=== PATIENT | female | born 1985 | race Caucasian/White ===

== ENCOUNTER 2021-11-22 19:09 | Emergency (ER) | payer OTHER, MEDICAID, SELFPAY ==
[2021-11-22 19:13] VITALS: BP 126/75; PULSE 102; RESP 14; TEMP 36.6; O2SAT 100; BMI 22.1
--- NOTE | 2021-11-22 19:39 | ED.WOUNDLAC ---
HPI - Wound/Laceration General Chief Complaint: Wound/Laceration Stated Complaint: cut left hand Time Seen by Provider: 11/22/21 19:25 Source: patient Mode of arrival: Ambulatory History of Present Illness HPI narrative: 36-year-old female who is here for evaluation of a cut to her left hand. She states that it occurred when she was trying to open a box that she thought was pain id shot. She does not know when her last tetanus shot was. Washed it out a small amount prior to arrival. No other injuries from the event. Related Data Allergies Allergy/AdvReac Type Severity Reaction Status Date / Time Sulfa (Sulfonamide Allergy Unknown Verified 11/22/21 19:15 Antibiotics) [SULFA (SULFONAMIDE ANTIBIOTICS)] Review of Systems Musculoskeletal Musculoskeletal: Reports system reviewed and no additional complaints, except as documented and Reports as per HPI Integumentary/Breasts Comments: Cut to left hand Hematologic/Lymphatic On Anticoagulants: No Patient History Social History Smoking Status: Current every day smoker Smoking Status: Current every day smoker alcohol intake frequency: a few times a week Substance Use Type: does not use Exam Initial Vital Signs Initial Vital Signs: Vital Signs Temperature 97.9 F 11/22/21 19:13 Pulse Rate 102 H 11/22/21 19:13 Respiratory Rate 14 11/22/21 19:13 Blood Pressure 126/75 11/22/21 19:13 Pulse Oximetry 100 11/22/21 19:13 HENMT Head: normal to inspection and normocephalic Skin Other: 1 cm laceration on the thenar eminence of the left hand. Neuro Sensory Exam: no sensory deficits noted Extrem Other: Full range of motion of the index finger and thumb of left hand. Procedures Laceration Repair Laceration 1: Site: hand Side (If applicable): left Size (cm): 1 Description: linear Depth: simple, single layer Local Anesthetic: lidocaine 1% and with bicarb Amount of anesthesia used (mL): 3 Pre-repair: wound explored and deep structures intact Skin layer closed with: nylon Size (cm): 5-0 Number of sutures: 2 Technique: simple, interrupted Course Orders Ordered: Discontinued Medications Bacitracin (Bacitracin Oint 0.9 Gm Pckt) 1 applic TOP NOW ONE Stop: 11/22/21 20:00 Last Admin: 11/22/21 20:07 Dose: 1 applic Documented by: BEATRICE Diphtheria/Tetanus/Acell Pertussis (Tet,Diph,Pertuss(Acell),Vac/Pf 0.5 Ml Syringe) 0.5 ml IM .ONCE ONE Stop: 11/22/21 19:40 Last Admin: 11/22/21 19:47 Dose: 0.5 ml Documented by: BEATRICE Lidocaine/Sodium Bicarbonate (Lido 1%/Sod Bicarb 8.4% (10ml) 10 Ml Syringe) 10 ml INJ NOW ONE Stop: 11/22/21 19:26 Last Admin: 11/22/21 19:49 Dose: 10 ml Documented by: BEATRICE Vital Signs Vital signs: Vital Signs - 8 hr 11/22/21 19:13 Temperature 97.9 F Pulse Rate 102 H Respiratory Rate 14 Blood Pressure 126/75 Pulse Oximetry 100 MDM - Wound/Laceration MDM Narrative Medical decision making narrative: Patient has an isolated cut to the palm of the left hand. No other injuries from the event. Her tetanus was updated. Was closed with 2 stitches as described above she was given care instructions and return precautions. No indication for radiologic studies. Patient expressed understanding and agreement. Discharge Plan Departure Patient Disposition: Home Clinical Impression: Laceration Instructions: DI for Laceration Repair Activity Restrictions/Additional Instructions: Leave the bandage that was placed today on for 24 hours. After that you can take it off. You can then wash your hands like normal. You can shower like normal. You can continue to use topical antibiotic ointment. The stitches do need to be removed in 7-10 days. You can contact your primary doctor or the walk-in clinic for this. Return to the emergency department for any new or worsening symptoms.
--- NOTE | 2021-11-22 19:43 | PC.NURSE ---
accidentally cut palm with a knife on th left hand
[2021-11-22] MEDS: TET,DIPH,PERTUSS(ACELL),VAC/PF 0.5 ML SYRINGE IM (19:47)
[2021-11-22] MEDS: LIDO 1%/SOD BICARB 8.4% (10ML) 10 ML SYRINGE INJ (19:49)
[2021-11-22] MEDS: BACITRACIN OINT 0.9 GM PCKT 1 APPLIC TOP (20:07)
== END 2021-11-22 20:09 | disposition home or self-care (01) ==
PROVIDERS: Emergency Provider Emergency Medicine
DX: S61.412A Laceration without foreign body of left hand, initial encounter (principal); W26.9XXA Contact with unspecified sharp object(s), initial encounter; Z23 Encounter for immunization
CPT/HCPCS: 12001; 90471; 99283; 90715

== ENCOUNTER 2022-05-20 19:21 | Emergency (ER) | payer OTHER, MEDICAID, SELFPAY | END 2022-05-20 19:53 | disposition left against medical advice (07) | PROVIDERS: Emergency Provider Family Medicine Addiction Medicine ==

== ENCOUNTER 2022-06-30 08:21 | Emergency (ER) | payer OTHER, MEDICAID, SELFPAY ==
[2022-06-30 08:30] VITALS: BP 160/103; PULSE 97; RESP 18; TEMP 36.2; O2SAT 97; BMI 25.1
--- NOTE | 2022-06-30 08:40 | ED_ITS ---
HPI - General Adult General Chief complaint: Dental/Oral Stated complaint: dental pain/swelling Time Seen by Provider: 06/30/22 08:27 Source: patient Mode of arrival: Ambulatory History of Present Illness HPI narrative: 37-year-old female who is here for evaluation dental pain/abscess. She has had dental work done on her bottom left back tooth in the past. She thinks maybe a filling came out. This happened on Friday. He tried to contact her dentist however it was the weekend and they were not open. She got a recording that says to call this week. She now has some swelling in her right lower jaw in the right side of her neck and is having right ear pain. No problems breathing or swallowing. Related Data Previous Rx's Medication Instructions Recorded hydrocodone 5 mg-acetaminophen 325 1 tab PO Q6H PRN pain #10 tabs 06/30/22 mg tablet penicillin V potassium 500 mg 500 mg PO QID 7 days #28 tabs 06/30/22 tablet Allergies Allergy/AdvReac Type Severity Reaction Status Date / Time Sulfa (Sulfonamide Allergy Unknown Verified 06/30/22 08:36 Antibiotics) [SULFA (SULFONAMIDE ANTIBIOTICS)] Review of Systems Constitutional Constitutional: Reports system reviewed and no additional complaints, except as documented ENT Ears, Nose, Mouth, and Throat: Reports system reviewed and no additional complaints, except as documented and Reports as per HPI Respiratory Respiratory: Reports as per HPI and Reports system reviewed and no additional complaints, except as documented Integumentary/Breasts Skin/Breast: Reports system reviewed and no additional complaints, except as documented Patient History Social History Smoking Status: Current every day smoker Smoking Status: Current every day smoker alcohol intake frequency: a few times a week Substance Use Type: does not use Exam Initial Vital Signs Initial Vital Signs: Vital Signs Temperature 97.1 F L 06/30/22 08:30 Pulse Rate 97 H 06/30/22 08:30 Respiratory Rate 18 06/30/22 08:30 Blood Pressure 160/103 H 06/30/22 08:30 Pulse Oximetry 97 06/30/22 08:30 Oxygen Delivery Method 06/30/22 08:30 HENMT Head: normal to inspection, normocephalic and atraumatic Ears: TM's normal bilaterally Face and sinus: no erythema, no fluctuance and other (Fullness right sub mandibular region) Teeth and gingiva: multiple restorations and other (Appears to be missing filling on the bottom right 2nd molar) Throat: posterior oropharynx normal Neck Other: Fullness right submandibular and anterior cervical chain Resp Effort & Inspection: normal respiratory effort Skin General: no rashes or lesions noted Course Orders Ordered: Discontinued Medications Hydrocodone Bitart/Acetaminophen (Hydrocodone/Acet 5/325 Tablet) 1 tab PO NOW ONE Stop: 06/30/22 08:40 Vital Signs Vital signs: Vital Signs - 8 hr 06/30/22 08:30 Temperature 97.1 F L Pulse Rate 97 H Respiratory Rate 18 Blood Pressure 160/103 H Pulse Oximetry 97 Oxygen Delivery Method Room Air Medical Decision Making MDM Narrative Medical decision making narrative: History and physical exam is consistent with a dental infection most likely from the missing filling in the bottom right 2nd molar. Will start the patient on antibiotics. Will provide pain control. Will have her contact her dentist earlier this week for follow-up. She was given return precautions. She expressed understanding and agreement. Discharge Plan Departure Patient Disposition: Home Clinical Impression: Dental abscess Activity Restrictions/Additional Instructions: Please take the medications as directed and tomorrow when your dentist office opens contact them as you are going to need definitive treatment by a dentist. Return to the emergency department for any new symptoms. Prescriptions: New penicillin V potassium 500 mg tablet 500 mg PO QID 7 Days Qty: 28 0RF hydrocodone-acetaminophen 5-325 mg tablet 1 tab PO Q6H PRN (Reason: pain) Qty: 10 0RF
[2022-06-30] MEDS: HYDROCODONE/ACET 5/325 TABLET 1 TAB PO (09:28)
== END 2022-06-30 09:38 | disposition home or self-care (01) ==
PROVIDERS: Emergency Provider Emergency Medicine
DX: K04.7 Periapical abscess without sinus (principal)
CPT/HCPCS: 99283

== ENCOUNTER 2023-09-06 15:49 | Observation (INO) | payer SELFPAY ==
[2023-09-06] VITALS (17 sets, daily range): BP systolic 109–144; BP diastolic 56–97; PULSE 75–96; RESP 12–21; TEMP 36.1–37; O2SAT 97–100; BMI 22.1; BMI 23.0
--- NOTE | 2023-09-06 | PATH_ITS ---
[facility] Accession Number: [id number] No. of containers..01 Tissue . 01 Material submitted: . fallopian tube - RIGHT FALLOPIAN TUBE . 01 Diagnosis: Right Fallopian Tube, Salpingectomy: Fallopian tube with acute salpingitis and hematosalpinx (on financial representative sections). Remaining tissue will be submitted for histologic evaluation; results will be reported as an addendum. MRV 09/17/2023 1719 Local . 01 Comment: The remaining tissue will be submitted; results will be reported as an addendum. . 01 Electronically signed: . Susi Pineda MD, Pathologist NPI- [id number] . 01 Gross description: . The specimen is received in formalin, labeled with the patient's name, , and right fallopian tube right, and consists of an intact, fimbriated fallopian tube measuring 8.2 cm in length and ranging from 0.7 cm to 2.2 cm in diameter. A large amount of hemorrhagic material is attached to the fimbriated end. The serosa is violaceous and smooth with no full-thickness defects grossly identified. A cystic structure is noted measuring 0.5 cm in greatest dimension. Sectioning reveals the lumen to be dilated with hemorrhagic material with no tissue grossly identified. Linoleum Tile Layer sections are submitted as follows: A1: Dilated hemorrhagic cross section. A2: One-half of bisected fimbriae and non-dilated unremarkable cross sections. A3: Linoleum Tile Layer attached hemorrhagic material. ([id number]) /FRR 09/10/2023 0418 Local . 01 Pathologist provided ICD-10: N70.01 . 01 CPT . 849186 Specimen Comment: A courtesy copy of this report has been sent to [facility] Pathology Performed at: [facility] [place] [facility] [address], [place], [place] [id number] MD Benson Wise MD Phone: [phone]
--- NOTE | 2023-09-06 16:04 | DI.US.S_ITS ---
PROCEDURE: US OB <= 14 WEEKS FETUS INDICATIONS: pelvic pain, + OUTSIDE/PRIOR DATING DATA: Last menstrual period (LMP): Unknown. LMP-based estimated date of delivery (EMILY): Unknown. TECHNIQUE: Real-time scanning was performed of the fetus and maternal pelvic organs, with image documentation. Endovaginal scanning was also performed to better visualize the fetus and maternal ovaries. COMPARISON: None. FINDINGS: No intrauterine gestational sac. Endometrium measures 0.5 cm. Right paraovarian heterogeneous mass measuring 4.9 x 3.2 x 2.7 cm. No significant internal vascularity. Right ovarian motors 3.4 x 2.3 x 2.1 cm, volume of 9 cc. Small ovarian follicles. Blood flow seen in the right ovary. Left ovary measures 2.8 x 2 x 1.7 cm, volume of 5 cc. Small ovarian follicles. Blood flow seen in the left ovary. There is a moderate amount free fluid in the pelvis. IMPRESSION: 1. of uncertain location. No intrauterine gestational sac. 2. Right paraovarian heterogeneous mass measuring 4.9 cm. This is concerning for an ectopic . Differential diagnosis includes a collapsed corpus luteum. Recommend gynecological consultation. 3. Moderate amount of free fluid in the pelvis. Comment: Findings were discussed with Harriet Gonzales at time of dictation. Reports patient has a history of ectopic pregnancies. We strive to produce accurate, complete, and clear reports of imaging services. To assist us in improving patient care, this report was composed using standard report templates and voice recognition software. Therefore, it may contain abnormal punctuation, insertions and/or omissions. Occasional wrong-word or sound-alike substitutions may occur. Though we review the report and make efforts to correct it, we do recommend that the report be read carefully in proper context to recognize any text inaccuracies. Dictated by: Maurice Emerson M.D. on 09/06/2023 at 18:00 Approved by: Maurice Emerson M.D. on 09/06/2023 at 18:06
[2023-09-06 16:19] LABS: Ur Creatinine Normal (Normal); Ur Specific Gravity Normal (Normal); Urine pH Normal (Normal)
[2023-09-06 16:20] LABS: UR Morphine/Opiate cutoff 300 Negative (Negative); Urine Amphetamines Positive (Negative); Urine Barbiturates Negative (Negative); Urine Benzodiazepines Negative (Negative); Urine Cocaine Negative (Negative); Urine MDMA Positive (Negative); Urine Methadone Negative (Negative); Urine Methamphetamines Positive (Negative); Urine Oxycodone Negative (Negative); Urine Phencyclidine Negative (Negative); Urine Tetrahydrocannabinol Negative (Negative); Urine Tricyclic Antidepressant Negative (Negative)
[2023-09-06 16:24] LABS: Add Manual Diff / Slide Review NO; Basophils Absolute Auto 100 /uL (0-100); Basophils Percent Auto 0.6 % (0-2); Eosinophils Absolute Auto 100 /uL (0-450); Eosinophils Percent Auto 0.7 % (2-4); Hematocrit 43.3 % (36-46); Hemoglobin 14.5 g/dL (12.0-16.0); Lymphocytes Absolute Auto 2800 /uL (1100-4500); Lymphocytes Percent Auto 15.4 % (25-40); Mean Corpuscular HGB Conc 33.5 % (30-36); Mean Corpuscular Hemoglobin 30.3 PG (26-34); Mean Corpuscular Volume 90.5 fL (80-100); Monocytes Absolute Auto 800 /uL (0-900); Monocytes Percent Auto 4.4 % (3-14); Neutrophils Absolute Auto 14200 /uL (1500-7000); Neutrophils Percent Auto 78.9 % (50-75); Platelet Count 269 X10^3/uL (150-400); Red Blood Cell Count 4.78 X10^6/uL (4.0-5.2); Red Cell Distribution Width 13.1 % (11.6-14.8)
[2023-09-06 16:31] LABS: Alanine Aminotransferase 13 IU/L (<35); Albumin 4.8 g/dL (3.5-5.0); Albumin Globulin Ratio 1.5 (1.0-2.8); Alkaline Phosphatase 57 U/L (38-126); Aspartate Aminotransferase 22 IU/L (14-36); BUN Creatinine Ratio 15.3 (6-22); Bilirubin Total 0.6 mg/dL (0.2-1.3); Blood Urea Nitrogen 9 mg/dL (7-17); Calcium 9.4 mg/dL (8.4-10.2); Carbon Dioxide 26 mmol/L (22-32); Chloride 102 mmol/L (98-107); Estimated Glomerular Filt Rate > 60 mL/min (>60); Globulin 3.2 g/dL (1.7-4.1); Glucose 110 mg/dL (70-100); HEMOLYSIS 25 (0-50); Potassium 3.9 mmol/L (3.4-5.1); Sodium 138 mmol/L (137-145)
--- NOTE | 2023-09-06 17:03 | ED.PREGNANCY ---
HPI - General Chief complaint: Abdominal Pain Stated complaint: ectopic t-0 Time Seen by Provider: 09/06/23 16:29 Source: patient Mode of arrival: Family Vehicle Limitations: no limitations History of Present Illness HPI Narrative: Patient 38-year-old female presenting today with right lower quadrant pain. She is previously had 2 ectopic she took a test today and it was positive. She reports that she would pain a couple hours ago. She would spotting last week but no bleeding today. Concern for substance abuse at triage Related Data Previous Rx's Medication Instructions Recorded hydrocodone 5 mg-acetaminophen 325 1 tab PO Q6H PRN pain #10 tabs 06/30/ mg tablet Allergies Allergy/AdvReac Type Severity Reaction Status Date / Time Sulfa (Sulfonamide Allergy Unknown Verified 09/06/23 16:05 Antibiotics) [SULFA (SULFONAMIDE ANTIBIOTICS)] Exam Initial Vital Signs Initial Vital Signs: Vital Signs Temperature 97.6 F 09/06/23 16:05 Pulse Rate 96 H 09/06/23 16:05 Respiratory Rate 18 09/06/23 16:05 Blood Pressure 144/97 H 09/06/23 16:05 Pulse Oximetry 100 09/06/23 16:05 Oxygen Delivery Method Room Air 09/06/23 16:05 GENERAL: Sleepy arousable 38-year-old female HEENT: Head atraumatic,EOMI, pupils reactive, face symmetric, [moist] mucous membranes CARDIOVASCULAR: Regular rate and rhythm without murmurs, rubs or gallops. RESPIRATORY: Breath sounds equal bilaterally, no wheezes rales or rhonchi. ABDOMEN: Soft, tender right lower quadrant pain minimal guarding no rebound EXTREMITIES: Normal range of motion, no clubbing or edema. Neurovascularly intact NEUROLOGICAL: Alert and oriented x4. SKIN: Warm, dry, no laceration, no petechiae, no rashes or lesions. Course Orders Ordered: ED Orders 09/06/23 16:00 Urine Drug Screen, Rapid Stat 09/06/23 16:04 US OB <= 14 weeks fetus Stat 09/06/23 16:08 Complete Blood Count AUTO DIFF Stat Comprehensive Metabolic Panel Stat HCG Quantitative /Beta subunit Stat 09/06/23 16:25 Type and Screen Stat Discontinued Medications Morphine Sulfate (Morphine 4 Mg/Ml Inj) 4 mg IV NOW ONE Stop: 09/06/23 17:37 Last Admin: 09/06/23 17:39 Dose: 4 mg Documented By: SHANTA Vital Signs Vital signs: Vital Signs - 8 hr 09/06/23 16:05 09/06/23 17:10 09/06/23 17:10 Temperature 97.6 F Pulse Rate 96 H 88 78 Respiratory Rate 18 16 Blood Pressure 144/97 H 121/80 Pulse Oximetry 100 100 Oxygen Delivery Method Room Air 09/06/23 17:30 09/06/23 17:30 Temperature Pulse Rate 78 Respiratory Rate 13 Blood Pressure 117/78 Pulse Oximetry 100 Oxygen Delivery Method Room Air MDM - OB/Uterine Contractions Lab Data 09/06/23 16:08 09/06/23 16:08 Labs: Lab Results 09/06/23 09/06/23 09/06/23 Range/Units 16:00 16:08 16:25 WBC 18.0 H (4.5-11.0) X10^3/uL RBC 4.78 (4.0-5.2) X10^6/uL Hgb 14.5 (12.0-16.0) g/dL Hct 43.3 (36-46) % MCV 90.5 (80-100) fL MCH 30.3 (26-34) PG MCHC 33.5 (30-36) % RDW 13.1 (11.6-14.8) % Plt Count 269 (150-400) X10^3/uL Neut % (Auto) 78.9 H (50-75) % Lymph % (Auto) 15.4 L (25-40) % [place] % (Auto) 4.4 (3-14) % Eos % (Auto) 0.7 L (2-4) % Baso % (Auto) 0.6 (0-2) % Neut # (Auto) 78292 H (2449-4167) /uL Lymph # (Auto) 2800 (7623-7469) /uL [place] # (Auto) 800 (0-900) /uL Eos # (Auto) 100 (0-450) /uL Baso # (Auto) 100 (0-100) /uL Sodium 138 (137-145) mmol/L Potassium 3.9 (3.4-5.1) mmol/L Chloride 102 (98-107) mmol/L Carbon Dioxide 26 (22-32) mmol/L BUN 9 (7-17) mg/dL Creatinine 0.59 (0.52-1.04) mg/dL Estimated GFR > 60 (>60) mL/min BUN/Creatinine Ratio 15.3 (6-22) Glucose 110 H (70-100) mg/dL Calcium 9.4 (8.4-10.2) mg/dL Total Bilirubin 0.6 (0.2-1.3) mg/dL AST 22 (14-36) IU/L ALT 13 (<35) IU/L Alkaline Phosphatase 57 (38-126) U/L Total Protein 8.0 (6.3-8.2) g/dL Albumin 4.8 (3.5-5.0) g/dL Globulin 3.2 (1.7-4.1) g/dL Albumin/Globulin Ratio 1.5 (1.0-2.8) HCG, Quant 2788.9 mIU/mL U Opiates 300ng/mL cut Negative (Negative) Ur Oxycodone Screen Negative (Negative) Urine Methadone Screen Negative (Negative) Ur Barbiturates Screen Negative (Negative) U Tricyclic Antidepress Negative (Negative) Ur Phencyclidine Scrn Negative (Negative) Ur Amphetamines Screen Positive H (Negative) U Methamphetamines Scrn Positive H (Negative) Ur MDMA Scrn (Ecstasy) Positive H (Negative) U Benzodiazepines Scrn Negative (Negative) Urine Cocaine Screen Negative (Negative) U Marijuana (THC) Screen Negative (Negative) Blood Type A Positive Antibody Screen Negative Point of Care Testing Test Results Positive Urine Dip Bedside Urine Glucose Negative Bedside Urine Bilirubin - Negative Bedside Urine Ketone - Negative Urine Specific [place] 1.020 Bedside Urine Occult Blood - Negative Bedside Urine pH 6.0 Bedside Urine Protein - Negative Bedside Urine Urobilinogen - Negative Bedside Urine Nitrite - Negative Bedside Urine Leukocytes - Negative Esterase Imaging Data US - OB: Radiologist's Impression: PROCEDURE: US OB <= 14 WEEKS FETUS INDICATIONS: pelvic pain, + OUTSIDE/PRIOR DATING DATA: Last menstrual period (LMP): Unknown. LMP-based estimated date of delivery (EMILY): Unknown. TECHNIQUE: Real-time scanning was performed of the fetus and maternal pelvic organs, with image documentation. Endovaginal scanning was also performed to better visualize the fetus and maternal ovaries. COMPARISON: None. FINDINGS: No intrauterine gestational sac. Endometrium measures 0.5 cm. Right paraovarian heterogeneous mass measuring 4.9 x 3.2 x 2.7 cm. No significant internal vascularity. Right ovarian motors 3.4 x 2.3 x 2.1 cm, volume of 9 cc. Small ovarian follicles. Blood flow seen in the right ovary. Left ovary measures 2.8 x 2 x 1.7 cm, volume of 5 cc. Small ovarian follicles. Blood flow seen in the left ovary. There is a moderate amount free fluid in the pelvis. IMPRESSION: 1. of uncertain location. No intrauterine gestational sac. 2. Right paraovarian heterogeneous mass measuring 4.9 cm. This is concerning for an ectopic . Differential diagnosis includes a collapsed corpus luteum. Recommend gynecological consultation. 3. Moderate amount of free fluid in the pelvis. Comment: Findings were discussed with Harriet Gonzales at time of dictation. Reports patient has a history of ectopic pregnancies. We strive to produce accurate, complete, and clear reports of imaging services. To assist us in improving patient care, this report was composed using standard report templates and voice recognition software. Therefore, it may contain abnormal punctuation, insertions and/or omissions. Occasional wrong-word or sound-alike substitutions may occur. Though we review the report and make efforts to correct it, we do recommend that the report be read carefully in proper context to recognize any text inaccuracies. Dictated by: Maurice Emerson M.D. on 09/06/2023 at 18:00 [facility] Narrative Medical decision making narrative: Patient 38-year-old female presenting today concern for pain with . She is had previous ectopic pregnancies. HCG today is, 2788 hemoglobin 14.5, hematocrit 43.3, WBC 18. UDS positive for methamphetamine amphetamine and MDMA Concern by c t tech for possible ruptured ectopic. I spoke directly with Dr. Emerson who was able to review the images and agreed that is no IUP mass in right ovary measuring 4.9 cm with moderate fluid collection in the cul-de-sac concern for ruptured ectopic Dr. Cabrera on-call for Ob updated on results concern for ruptured ectopic. Will be in a patient will be going OR, at bedside in ED Patient currently stable pressure 121/80 heart rate 88 Discharge Plan Departure Patient Disposition: Admitted as Observation Clinical Impression: Ruptured ectopic Admit Date/Time: 09/06/23 17:32 Admit Provider: Adele Hummel
[2023-09-06] MEDS: MORPHINE 4 MG/ML INJ IV (17:39)
--- NOTE | 2023-09-06 17:59 | PM.HP.1 ---
History of Present Illness History of Present Illness Date Patient Seen: 09/06/23 Time Patient Seen: 17:45 Date of Onset of Symptoms: 09/06/23 Chief complaint: ectopic t-0 Narrative: 38yo presented to the ER for abdominal pain that started today. She also found out she had a positive test today. She has a hx of 2 prior ectopic pregnancies, one treated with methotrexate and one laparoscopic salpingectomy. [facility] Social History Smoking Status: Current every day smoker Comment: PMH: hypothyroidism PSH: 1 prior laparoscopy for ectopic OB: 4 SVDs, 2 ectopic (1 MTX, 1 lap salpingectomy) Meds Home Medications and Allergies Home Medications Medication Instructions Recorded Confirmed Type hydrocodone 5 mg-acetaminophen 325 1 tab PO Q6H PRN pain #10 tabs 06/30/22 Rx mg tablet Allergies Allergy/AdvReac Type Severity Reaction Status Date / Time Sulfa (Sulfonamide Allergy Unknown Verified 09/06/23 16:05 Antibiotics) [SULFA (SULFONAMIDE ANTIBIOTICS)] Review of Systems Review of Systems ROS: Yes All systems reviewed with the patient and are negative except as otherwise documented Exam Vital Signs (past 8 hours): - 09/06/23 16:05 09/06/23 17:10 09/06/23 17:10 Temperature 97.6 F Pulse Rate 96 H 88 78 Respiratory Rate 18 16 Blood Pressure 144/97 H 121/80 Pulse Oximetry 100 100 Oxygen Delivery Method Room Air 09/06/23 17:30 09/06/23 17:30 09/06/23 17:40 Temperature Pulse Rate 78 Respiratory Rate 13 Blood Pressure 117/78 133/64 Pulse Oximetry 100 Oxygen Delivery Method Room Air 09/06/23 17:40 Temperature Pulse Rate 83 Respiratory Rate 17 Blood Pressure Pulse Oximetry 97 Oxygen Delivery Method Oxygen Delivery Method Room Air Const General: cooperative and No comfortable Resp Effort & Inspection: normal respiratory effort and able to speak in complete sentences GI Inspection: normal to inspection Palpation: soft, No guarding and tender Skin General: no rashes or lesions noted Psych Attitude: cooperative Thought Process: normal Objective Imaging US - abdomen: Radiologist's impression: Verbally reported to me as a mass in the adnexa with free fluid in the pelvis; no report available at time of my H&P Labs 09/06/23 16:08 12/16/23 16:08 Labs: Laboratory Results - last 24 hr 09/06/23 09/06/23 09/06/23 16:00 16:08 16:25 WBC 18.0 H RBC 4.78 Hgb 14.5 Hct 43.3 MCV 90.5 MCH 30.3 MCHC 33.5 RDW 13.1 Plt Count 269 Neut % (Auto) 78.9 H Lymph % (Auto) 15.4 L [place] % (Auto) 4.4 Eos % (Auto) 0.7 L Baso % (Auto) 0.6 Neut # (Auto) 35405 H Lymph # (Auto) 2800 [place] # (Auto) 800 Eos # (Auto) 100 Baso # (Auto) 100 Sodium 138 Potassium 3.9 Chloride 102 Carbon Dioxide 26 BUN 9 Creatinine 0.59 Estimated GFR > 60 BUN/Creatinine Ratio 15.3 Glucose 110 H Calcium 9.4 Total Bilirubin 0.6 AST 22 ALT 13 Alkaline Phosphatase 57 Total Protein 8.0 Albumin 4.8 Globulin 3.2 Albumin/Globulin Ratio 1.5 HCG, Quant 2788.9 U Opiates 300ng/mL cut Negative Ur Oxycodone Screen Negative Urine Methadone Screen Negative Ur Barbiturates Screen Negative U Tricyclic Antidepress Negative Ur Phencyclidine Scrn Negative Ur Amphetamines Screen Positive H U Methamphetamines Scrn Positive H Ur MDMA Scrn (Ecstasy) Positive H U Benzodiazepines Scrn Negative Urine Cocaine Screen Negative U Marijuana (THC) Screen Negative Blood Type A Positive Antibody Screen Negative Assessment & Plan Assessment and plan (1) Ruptured ectopic : Status: Acute Plan 38yo with ultrasound findings of ruptured ectopic . Pt was also noted to be positive for methamphetamines and ecstasy, however she demonstrated appropriate decision making with appropriate questions during my consent in the ER. She stated that she would potentially like to have other children, and I discussed that I will do my best to save her fallopian tube if possible, but that it is very likely she will lose her remaining fallopian tube. -plan for diagnostic laparoscopy with possible unilateral salpingectomy -plan for same day surgery with d/c home after recovery from anesthesia Surgery consent We discussed the risks/benefits/alternatives to the proposed procedure, to include: -risk of bleeding, requiring medications, blood products, or other procedures as indicated -risk of infection, requiring prolonged hospital stay or other procedures -risk of injury to other structures, including bowel, bladder, blood vessels, nerves, etc. which may also require additional procedures -risk of adverse reaction to anesthesia or medications -risk of venous thromboembolism and associated sequelae -risk of rare complications such as cardiac arrest, or extremely rarely, Patient is aware of the risks, and desires to proceed with planned surgical procedure. Time Spent With Patient Time with patient: less than 30 minutes
--- NOTE | 2023-09-06 18:32 | PC.NURSE ---
CUSTOMER TRAINER and patient's mother at bedside. Patient changed into hospital gown, belongings in bag with patient.
[2023-09-06] MEDS: LACTATED RINGERS 1,000 ML 42 ML IV ×2 (18:51→19:51)
--- NOTE | 2023-09-06 19:26 | SUR.OPER ---
Lithotomy on padded OR bed, head on pillow, right arm secured on padded arm board at <90 degrees abduction. left arm tucked with gel pad. Legs secured in padded yellow fins stirrups. safety strap across chest
[2023-09-06] MEDS: BUPIVACAINE 0.25% (PF) VIAL 30 ML INJ (19:49)
--- NOTE | 2023-09-06 20:07 | SUR.PHASEI ---
2001- Received to PACU after general anesthesia. Airway patent, self maintained. Report from Dr Rodriguez, and ALYSSA Amezcua.
[2023-09-06] MEDS: ONDANSETRON 4 MG/2 ML INJ IV (20:22)
[2023-09-06] MEDS: OXYCODONE/ACETAMINOPHEN 5/325 TABLET 1 TAB PO ×2 (20:23→20:49)
--- NOTE | 2023-09-06 20:29 | PC.NURSE ---
Percocet pre pack pulled for [facility], Surgical Services for patient currently in PACU.
[2023-09-06] MEDS: OXYCODONE/APAP 5/325 PREPACK 1 BOTTLE MISC (20:44)
--- NOTE | 2023-09-06 22:43 | PM.OP.1 ---
Operative Date/Time/Diagnoses Date of procedure: 09/06/23 Time of procedure: 19:00 Pre-op diagnosis: Suspected ruptured tubal ectopic Post-op diagnosis: same (Confirmed ruptured right tubal ectopic ) Procedure & Clinicians Procedure: Diagnostic laparoscopy Laparoscopic right salpingectomy Same procedure as scheduled: Yes Indications: 38yo presented to the ER for abdominal pain that started today. She also found out she had a positive test today. She has a hx of 2 prior ectopic pregnancies, one treated with methotrexate and one laparoscopic salpingectomy. Surgeon: Adele Hummel Click Yes if Unassisted: Yes Anesthesia Type: General Operative Notes Findings: Approximately 200cc of blood in the pelvis. Tubal noted in the right fallopian tube. Left fallopian tube surgically absent. Normal appearing uterus and bilateral ovaries. Normal appearing liver edge and gallbladder. Specimen(s): other (right fallopian tube) Estimated Blood Loss (mL): 200 Blood products transfused: none Procedure in detail: The risks, benefits, indications and alternatives of the procedure were reviewed with the patient and informed consent was obtained. The pt was taken to the operating room where general anesthesia was obtained without difficulty. The pt was then placed in the low lithotomy position using gel-padded El Stirrups. Sequential compression devices were placed bilaterally for VTE prophylaxis. Pt was then prepped and draped in the usual sterile fashion. A Vines catheter was placed without difficulty. A sponge stick was placed in the vagina as a means to manipulate the uterus. Attention was then turned to the patient?s abdomen where a 5mm skin incision was made in the inferior aspect of the umbilicus after injection of 0.25% marcaine. A 5mm trocar and sleeve were then carefully introduced into the peritoneal cavity under direct visualization at a 90-degree angle while tenting up the abdominal wall. Intra-peritoneal placement was confirmed under direct visualization with the laparoscope with entry pressure <5mmHg. A pneumoperitoneum was obtained with several liters of CO2 gas, maximum pressure of 15mmHg. Upon entry into the peritoneal cavity, structures immediately below the incision were inspected and found to be free of injury. Two additional 5mm trocars were placed in the left lateral aspect of the abdominal wall under direct laparoscopic visualization after injection of 0.25% marcaine at each site. A survey of the pt?s abdomen and pelvis was notable for the above findings. Visual examination of the right fallopian tube determined that the tube could not be salvaged. Using an atraumatic grasper, the right fallopian tube with the ectopic was tented up. In a stepwise fashion, the right fallopian tube was removed from the fimbriated end to the cornual end with ultimate excision of the fallopian tube using the Powerseal. One of the 5mm lateral ports was exchanged for a 11mm port in order to allow introduction of an endocatch bag into the abdomen. The right fallopian tube was then placed into the bag, and the bag was then removed from the abdomen. The tissue was sent to pathology for review. The pelvis was then irrigated and all remaining clots and blood were suctioned from the pelvis. All pedicles were re-examined and noted to be hemostatic. The gas was then turned off and all CO2 was removed from the pt?s abdomen. The trocars were removed. The fascia of the 11mm port was closed with an 0-vicryl suture. The skin incision sites were reapproximated using 4-0 monocryl and dermabond. The sponge stick was removed from the vagina, and the vines catheter was removed from the bladder. All instruments were confirmed to be removed from the vagina. At the completion of the case the sponge and needle counts were correct x 2. The patient tolerated the procedure well and was taken to the PACU in stable condition. Complications: none Post-operative Condition: stable Disposition: PACU Plan for aftercare: Discharge home once meeting PACU criteria.
== END 2023-09-06 20:52 | disposition home or self-care (01) ==
LOC: ED 16:29 → AC 17:33
PROVIDERS: Admitting Provider Student in an Organized Health Care Education/Training Program; Emergency Provider Emergency Medicine; Referring Provider Emergency Medicine; Visit Provider Student in an Organized Health Care Education/Training Program
PROC: (CPT 59151; principal; 2023-09-06 20:30)
DX: O00.101 Right tubal pregnancy without intrauterine pregnancy (principal)
CPT/HCPCS: 59151; 36415; 76801; 80053; 80305; 81003; 81025; 84702; 85025; 86850; 86900; 86901; 96374; 96375; 99221; 99284; G0378; J0330; J1100; J2250; J2270; J2405; J2704; J3010

== ENCOUNTER 2023-11-17 20:18 | Emergency (ER) | payer OTHER, MEDICAID, SELFPAY ==
[2023-11-17 20:21] VITALS: BP 136/81; PULSE 84; RESP 16; TEMP 36.3; O2SAT 100; BMI 254.3
[2023-11-17] MEDS: ONDANSETRON 4 MG/2 ML INJ IV (20:48)
[2023-11-17 20:59] LABS: Add Manual Diff / Slide Review NO; Basophils Absolute Auto 100 /uL (0-100); Basophils Percent Auto 0.6 % (0-2); Eosinophils Absolute Auto 200 /uL (0-450); Eosinophils Percent Auto 1.5 % (2-4); Hematocrit 44.5 % (36-46); Hemoglobin 14.9 g/dL (12.0-16.0); Lymphocytes Absolute Auto 2500 /uL (1100-4500); Lymphocytes Percent Auto 21.1 % (25-40); Mean Corpuscular HGB Conc 33.5 % (30-36); Mean Corpuscular Hemoglobin 29.8 PG (26-34); Mean Corpuscular Volume 88.9 fL (80-100); Monocytes Absolute Auto 900 /uL (0-900); Monocytes Percent Auto 7.2 % (3-14); Neutrophils Absolute Auto 8400 /uL (1500-7000); Neutrophils Percent Auto 69.6 % (50-75); Platelet Count 248 X10^3/uL (150-400); Red Blood Cell Count 5.01 X10^6/uL (4.0-5.2)
[2023-11-17 21:03] LABS: Alanine Aminotransferase 12 IU/L (<35); Albumin 4.2 g/dL (3.5-5.0); Albumin Globulin Ratio 1.4 (1.0-2.8); Alkaline Phosphatase 55 U/L (38-126); Aspartate Aminotransferase 21 IU/L (14-36); BUN Creatinine Ratio 14.8 (6-22); Bilirubin Total 0.4 mg/dL (0.2-1.3); Blood Urea Nitrogen 9 mg/dL (7-17); Calcium 9.1 mg/dL (8.4-10.2); Carbon Dioxide 25 mmol/L (22-32); Chloride 106 mmol/L (98-107); Estimated Glomerular Filt Rate > 60 mL/min (>60); Globulin 3.1 g/dL (1.7-4.1); Glucose 123 mg/dL (70-100); HEMOLYSIS 30 (0-50); Sodium 138 mmol/L (137-145); Total Protein 7.3 g/dL (6.3-8.2)
[2023-11-17 21:26] LABS: Influenza A - CEPHEID Flu A NEGATIVE (NEGATIVE); Influenza B - CEPHEID Flu B NEGATIVE (NEGATIVE); Respiratory Syncytial Virus Negative (Negative)
[2023-11-17 21:30] LABS: COVID-19 CEPHEID 4-PLEX PCR Negative (Negative)
--- NOTE | 2023-11-17 23:03 | ED.GENADULT ---
HPI - General Adult General Chief complaint: Dizziness Stated complaint: V/Dizzy/close to syncope Time Seen by Provider: 11/17/23 22:00 Source: patient Mode of arrival: Ambulatory History of Present Illness HPI narrative: Patient is a 38-year-old female who is here for evaluation of dizziness. She was also having some nausea. She felt like she was going to pass out. Symptoms started this morning when she woke up. Has been persistent throughout the day but does seem to be waxing and waning. She feels somewhat better when she is lying down but worse when she is sitting up or moving her head from [id number]. No sinus congestion. No ear pain. No sore throat. No chest pain, shortness of breath, palpitations. No headache. No extremity symptoms. Family at bedside states she has had a diagnosis of vertigo in the past. Patient was unaware of this. Related Data Home Medications Medication Instructions Recorded Confirmed levothyroxine 50 mcg tablet 50 mcg PO DAILY 09/06/23 09/06/23 Previous Rx's Medication Instructions Recorded meclizine 25 mg tablet 25 mg PO BID PRN dizziness #14 tabs 11/17/23 Allergies Allergy/AdvReac Type Severity Reaction Status Date / Time Sulfa (Sulfonamide Allergy Unknown childhood Verified 11/17/23 20:21 Antibiotics) reaction [SULFA (SULFONAMIDE ANTIBIOTICS)] sulfamethoxazole Allergy childhood Verified 11/17/23 20:21 [From Bactrim] reaction trimethoprim [From Bactrim] Allergy childhood Verified 11/17/23 20:21 reaction Review of Systems Review of Systems ROS Unobtainable: All systems reviewed & are unremarkable except as noted in HPI and below Constitutional Constitutional: Reports system reviewed and no additional complaints, except as documented Patient History Medical History Hepatitis C Hypothyroid Surgical History (Updated 09/06/23 @ 18:59 by Sharonda Alva RN) S/P breast augmentation Social History household members: family and children Smoking Status: Current every day smoker Smoking Status: Current every day smoker tobacco type: cigarettes alcohol intake frequency: a few times a week Substance Use Type: marijuana Exam Initial Vital Signs Initial Vital Signs: Vital Signs Temperature 97.4 F L 11/17/23 20:21 Pulse Rate 84 02/26/24 20:21 Respiratory Rate 16 11/17/23 20:21 Blood Pressure 136/81 11/17/23 20:21 Pulse Oximetry 100 11/17/23 20:21 Oxygen Delivery Method Room Air 11/17/23 20:21 Const General: cooperative, comfortable and No ill appearing HENMT Head: normal to inspection and normocephalic Ears: TM's normal bilaterally Face and sinus: normal facial exam Resp Effort & Inspection: normal respiratory effort Cardio Rate: regular rate Skin General: no rashes or lesions noted Neuro General: patient alert, patient awake, patient oriented x3 and moves all extremities Extrem General: normal to inspection and capillary refill normal Course Orders Ordered: ED Orders 11/17/23 20:41 Complete Blood Count AUTO DIFF Stat Comprehensive Metabolic Panel Stat Covid-19 + FLU A/B + RSV - PCR Stat 11/17/23 22:21 EKG-12 Lead Stat Discontinued Medications Meclizine HCl (Meclizine Hcl 12.5 Mg Tablet) 25 mg PO NOW ONE Stop: 11/17/23 23:04 Last Admin: 11/17/23 23:17 Dose: 25 mg Documented By: GC Ondansetron HCl (Ondansetron 4 Mg/2 Ml Inj) 4 mg IV NOW PRN PRN Reason: Nausea And Vomiting Last Admin: 11/17/23 20:48 Dose: 4 mg Documented By: WILBERTO Ondansetron HCl (Ondansetron 4 Mg Odt) 4 mg SL NOW PRN PRN Reason: Nausea And Vomiting Vital Signs Vital signs: Vital Signs - 8 hr 11/17/23 20:21 11/17/23 23:28 Temperature 97.4 F L 97.8 F Pulse Rate 84 76 Respiratory Rate 16 16 Blood Pressure 136/81 128/74 Pulse Oximetry 100 98 Oxygen Delivery Method Room Air Room Air Medical Decision Making Lab Data Lab results reviewed: Yes I reviewed the patient's lab results. 11/17/23 20:41 11/17/23 20:41 Labs: Lab Results 11/17/23 Range/Units 20:41 WBC 12.0 H (4.5-11.0) X10^3/uL RBC 5.01 (4.0-5.2) X10^6/uL Hgb 14.9 (12.0-16.0) g/dL Hct 44.5 (36-46) % MCV 88.9 (80-100) fL MCH 29.8 (26-34) PG MCHC 33.5 (30-36) % RDW 13.0 (11.6-14.8) % Plt Count 248 (150-400) X10^3/uL Neut % (Auto) 69.6 (50-75) % Lymph % (Auto) 21.1 L (25-40) % [place] % (Auto) 7.2 (3-14) % Eos % (Auto) 1.5 L (2-4) % Baso % (Auto) 0.6 (0-2) % Neut # (Auto) 8400 H (8675-1456) /uL Lymph # (Auto) 2500 (4634-6020) /uL [place] # (Auto) 900 (0-900) /uL Eos # (Auto) 200 (0-450) /uL Baso # (Auto) 100 (0-100) /uL Sodium 138 (137-145) mmol/L Potassium 4.0 (3.4-5.1) mmol/L Chloride 106 (98-107) mmol/L Carbon Dioxide 25 (22-32) mmol/L BUN 9 (7-17) mg/dL Creatinine 0.61 (0.52-1.04) mg/dL Estimated GFR > 60 (>60) mL/min BUN/Creatinine Ratio 14.8 (6-22) Glucose 123 H (70-100) mg/dL Calcium 9.1 (8.4-10.2) mg/dL Total Bilirubin 0.4 (0.2-1.3) mg/dL AST 21 (14-36) IU/L ALT 12 (<35) IU/L Alkaline Phosphatase 55 (38-126) U/L Total Protein 7.3 (6.3-8.2) g/dL Albumin 4.2 (3.5-5.0) g/dL Globulin 3.1 (1.7-4.1) g/dL Albumin/Globulin Ratio 1.4 (1.0-2.8) SARS-CoV-2 (PCR) Negative (Negative) Influenza A (RT-PCR) Flu a negative (NEGATIVE) Influenza B (RT-PCR) Flu b negative (NEGATIVE) RSV (PCR) Negative (Negative) Point of Care Testing Test Results Negative Urine Dip Bedside Urine Glucose Negative Bedside Urine Bilirubin - Negative Bedside Urine Ketone - Negative Urine Specific [place] 1.010 Bedside Urine Occult Blood - Negative Bedside Urine pH 8.5 Bedside Urine Protein - Negative Bedside Urine Urobilinogen - Negative Bedside Urine Nitrite - Negative Bedside Urine Leukocytes - Negative Esterase Point of care testing: Point of Care Testing Test Results Negative Urine Dip Bedside Urine Glucose Negative Bedside Urine Bilirubin - Negative Bedside Urine Ketone - Negative Urine Specific [place] 1.010 Bedside Urine Occult Blood - Negative Bedside Urine pH 8.5 Bedside Urine Protein - Negative Bedside Urine Urobilinogen - Negative Bedside Urine Nitrite - Negative Bedside Urine Leukocytes - Negative Esterase ECG Data Attestation: I personally reviewed and interpreted this ECG as follows: Interpretation: Sinus rhythm Ventricular rate is 76 Normal axis Normal QRS No ST T wave changes MDM Narrative Medical decision making narrative: Patient's symptoms today are most consistent with BPPV. This is positional vertigo. Her exam is otherwise unremarkable. Low suspicion for CVA/TIA. She has had vertigo in the past. Will hold on head CT for now. Will discharge home with meclizine. She was given return precautions. She expressed understanding and agreement Discharge Plan Departure Patient Disposition: Home Clinical Impression: Vertigo Instructions: DI for Vertigo Activity Restrictions/Additional Instructions: I do recommend that you use the meclizine as needed. I also recommend that you look up the ?Gely maneuver? which can be very helpful for your symptoms. Return to the emergency department for new symptoms. Prescriptions: New meclizine 25 mg tablet 25 mg PO BID PRN (Reason: dizziness) Qty: 14 0RF No Action levothyroxine 50 mcg tablet 50 mcg PO DAILY Referrals: Miscellaneous,DoctorMD [Primary Care Provider] - Stand Alone Forms: Patient Portal/API
[2023-11-17] MEDS: MECLIZINE HCL 12.5 MG TABLET 25 MG PO (23:17)
[2023-11-17 23:28] VITALS: BP 128/74; PULSE 76; RESP 16; TEMP 36.6; O2SAT 98
== END 2023-11-17 23:29 | disposition home or self-care (01) ==
PROVIDERS: Emergency Provider Emergency Medicine
DX: R42 Dizziness and giddiness (principal); R11.0 Nausea; Z20.822 Contact with and (suspected) exposure to COVID-19
CPT/HCPCS: 0241U; 36415; 80053; 81003; 81025; 85025; 93005; 99284; J2405

== ENCOUNTER 2024-04-16 23:23 | Emergency (ER) | payer OTHER, MEDICAID, SELFPAY ==
[2024-04-16 23:28] VITALS: BP 133/73; PULSE 108; RESP 20; TEMP 37.2; O2SAT 99; BMI 23.0
--- NOTE | 2024-04-16 23:55 | ED.GENADULT ---
HPI - General Adult General Chief complaint: Trauma Stated complaint: Moving injury, rt side chest Time Seen by Provider: 04/16/24 23:50 Source: patient Mode of arrival: Ambulatory History of Present Illness HPI narrative: 39-year-old female who is here for evaluation of right-sided chest wall pain. She stated that 2 days ago while moving she had a dresser that fell and hit her on the right side of the chest wall. Since that she was had discomfort that is actually been worsening over the past day or so. No skin changes over the area. It is worse to touch. No coughing. No fevers. Related Data Home Medications Medication Instructions Recorded Confirmed levothyroxine 50 mcg tablet 50 mcg PO DAILY 09/06/23 04/16/24 Allergies Allergy/AdvReac Type Severity Reaction Status Date / Time Sulfa (Sulfonamide Allergy Unknown childhood Verified 11/17/23 20:21 Antibiotics) reaction [SULFA (SULFONAMIDE ANTIBIOTICS)] sulfamethoxazole Allergy childhood Verified 11/17/23 20:21 [From Bactrim] reaction trimethoprim [From Bactrim] Allergy childhood Verified 11/17/23 20:21 reaction Review of Systems Review of Systems Narrative: See HPI Patient History Medical History Hepatitis C Hypothyroid Surgical History (Updated 09/06/23 @ 18:59 by Sharonda Alva RN) S/P breast augmentation Social History household members: family and children Smoking Status: Current every day smoker Smoking Status: Current every day smoker tobacco type: cigarettes alcohol intake frequency: a few times a week Substance Use Type: marijuana Exam Initial Vital Signs Initial Vital Signs: Vital Signs Temperature 99 F 04/16/24 23:28 Pulse Rate 108 H 04/16/24 23:28 Respiratory Rate 20 04/16/24 23:28 Blood Pressure 133/73 04/16/24 23:28 Pulse Oximetry 99 04/16/24 23:28 Oxygen Delivery Method Room Air 04/16/24 23:28 Const General: cooperative, comfortable and No ill appearing HENMT Head: normal to inspection and normocephalic Chest Chest: No crepitus and tenderness (Right-sided upper chest) Resp Effort & Inspection: normal respiratory effort Auscultation: clear to auscultation bilaterally Skin General: no rashes or lesions noted Neuro General: patient alert, patient awake and patient oriented x3 Course Orders Ordered: ED Orders 04/16/24 23:55 XR ribs RT min 3V w CXR1V Stat Discontinued Medications Ketorolac Tromethamine (Ketorolac 30 Mg/Ml Vial) 30 mg IM NOW ONE Stop: 04/16/24 23:57 Last Admin: 04/17/24 00:07 Dose: 30 mg Documented By: GERRI Vital Signs Vital signs: Vital Signs - 8 hr 04/16/24 23:28 Temperature 99 F Pulse Rate 108 H Respiratory Rate 20 Blood Pressure 133/73 Pulse Oximetry 99 Oxygen Delivery Method Room Air Medical Decision Making Imaging Data rib x-ray: Radiologist's Impression: PROCEDURE: XR RIBS RT MIN 3V W CXR 1V INDICATIONS: R anterior superior chest wall pain after injury TECHNIQUE: 3 views of the ribs were acquired, along with a single view chest. COMPARISON: None. FINDINGS: Surgical changes and devices: None. Bones and chest wall: No fractures or dislocations. No suspicious bony lesions. Overlying soft tissues appear unremarkable. Lungs and pleura: No pleural effusions or pneumothorax. Lungs appear clear. Mediastinum: Mediastinal contours appear normal. Heart size is normal. IMPRESSION: No displaced rib fracture or pneumothorax. MDM Narrative Medical decision making narrative: There was no bruising over the right-sided anterior chest wall. The rib x-ray shows no rib fractures or underlying lung pathology. Patient was not hypoxic. Not tachypneic. She reports some improvement after Toradol. I do suspect that this is a muscle contusion. Discuss this with the patient. Tylenol and ibuprofen for discomfort and I suspect that symptoms will improve over the next couple days. Patient was given return precautions. Discharge Plan Departure Patient Disposition: Home Clinical Impression: Anterior chest wall pain Activity Restrictions/Additional Instructions: The x-ray today is very reassuring and shows no broken ribs or issues with your lung. I suspect that your symptoms will improve over the next couple days. You can continue to take Tylenol/ibuprofen. Some ice over the area maybe helpful as well. Return to the emergency department for new symptoms. Prescriptions: No Action levothyroxine 50 mcg tablet 50 mcg PO DAILY Referrals: Miscellaneous,DoctorMD [Primary Care Provider] - Stand Alone Forms: Patient Portal/API
[2024-04-17] MEDS: KETOROLAC 30 MG/ML VIAL IM (00:07)
[2024-04-17 01:52] VITALS: BP 125/85; PULSE 92; RESP 16; O2SAT 100
== END 2024-04-17 01:54 | disposition home or self-care (01) ==
PROVIDERS: Emergency Provider Emergency Medicine
DX: R07.89 Other chest pain (principal); W20.8XXA Other cause of strike by thrown, projected or falling object, initial encounter
CPT/HCPCS: 71101; 96372; 99283; J1885

== ENCOUNTER 2025-04-18 12:20 | Emergency (ER) | payer OTHER, MEDICAID, SELFPAY ==
--- NOTE | 2025-04-18 13:08 | PC.NURSE ---
Went to call patient for triage at 1249, patient not present. Per charge nurse had called back into ED around 8 minutes prior asking how long it would take, educated about wait times. Patient proceeded to leave under own power through ED front doors. Waited 20 minutes, patient still not present in [facility], will VDC.
--- NOTE | 2025-04-19 13:46 | ED_ITS ---
HPI - General Adult General Stated complaint: headache, N/V, off balance Time Seen by Provider: 04/18/25 13:08 History of Present Illness HPI narrative: never saw pt Related Data Home Medications ?Medication ?Instructions ?Recorded ?Confirmed levothyroxine 50 mcg tablet 50 mcg PO DAILY 09/06/23 0 04/16/24 Previous Rx's ?Medication ?Instructions ?Recorded ibuprofen 600 mg tablet 600 mg PO Q6H PRN as needed for 04/19/25 pain #20 tabs Allergies Allergy/AdvReac Type Severity Reaction Status Date / Time Sulfa (Sulfonamide Allergy Unknown childhood Verified 04/19/25 09:39 Antibiotics) (SULFA reaction (SULFONAMIDE ANTIBIOTICS)) sulfamethoxazole (From Allergy childhood Verified 04/19/25 09:39 Bactrim) reaction trimethoprim (From Bactrim) Allergy childhood Verified 04/19/25 09:39 reaction Patient History Medical History Hepatitis C Hypothyroid Surgical History (Updated 09/06/23 @ 18:59 by Sharonda Alva RN) S/P breast augmentation Social History household members: family and children Smoking Status: Current every day smoker tobacco type: cigarettes alcohol intake frequency: a few times a week Discharge Plan Departure Patient Disposition: Left Without Being Seen Clinical Impression: Patient left without being seen Prescriptions: No Action ibuprofen 600 mg tablet 600 mg PO Q6H PRN (Reason: as needed for pain) Qty: 20 0RF levothyroxine 50 mcg tablet 50 mcg PO DAILY
== END 2025-04-18 13:09 | disposition left against medical advice (07) ==
PROVIDERS: Emergency Provider Family Medicine
DX: Z53.21 Procedure and treatment not carried out due to patient leaving prior to being seen by health care provider (principal)

== ENCOUNTER 2025-04-19 09:23 | Emergency (ER) | payer OTHER, SELFPAY ==
[2025-04-19] VITALS (9 sets, daily range): BP systolic 118–148; BP diastolic 81–105; PULSE 70–107; RESP 16; TEMP 36.9; O2SAT 98–100; BMI 23.9
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
== END 2025-04-19 12:01 | disposition home or self-care (01) ==
PROVIDERS: Emergency Provider Emergency Medicine
DX: S06.0X0A Concussion without loss of consciousness, initial encounter (principal); R42 Dizziness and giddiness; R07.81 Pleurodynia; Y04.2XXA Assault by strike against or bumped into by another person, initial encounter
CPT/HCPCS: 70450; 70486; 71111; 99281; 99284